=== PATIENT | female | born 1990 | race Caucasian/White ===

== ENCOUNTER 2018-10-05 13:22 | Emergency (ER) | payer OTHER, MEDICAID, SELFPAY ==
[2018-10-05 13:28] VITALS: BP 160/116; PULSE 82; RESP 18; TEMP 36.9; O2SAT 94; BMI 41.5
--- NOTE | 2018-10-05 13:52 | DI.RAD.S_ITS ---
PROCEDURE: XR CHEST 2V INDICATIONS: cough x 3 weeks TECHNIQUE: 2 views of the chest were acquired. COMPARISON: None. FINDINGS: Surgical changes and devices: None. Lungs and pleura: No pleural effusions or pneumothorax. Lungs are clear. Mediastinum: Mediastinal contours are normal. Heart size is normal. Bones and chest wall: No suspicious bony abnormalities. Soft tissues appear unremarkable. IMPRESSION: 1. No acute cardiopulmonary disease. Dictated by: Jean Khoury M.D. on 10/05/2018 at 14:51 Approved by: Jean Khoury M.D. on 10/05/2018 at 14:51
--- NOTE | 2018-10-05 13:57 | ED_ITS ---
HPI - URI/Sore Throat <ROSS Coon - Last Filed: 10/05/18 16:08> General Chief Complaint: Upper Respiratory Symptoms Stated Complaint: cough and wheezing Time Seen by Provider: 10/05/18 13:46 Source: patient Mode of arrival: ambulatory Limitations: no limitations History of Present Illness HPI Narrative: Patient is a 28-year-old female smoker who presents with a chief complaint of a productive cough ongoing for 3-4 weeks. She states she is having wheezing and shortness of breath with activity. She denies any sore throat, ear pain, fever, nausea vomiting diarrhea. She states she has not vomited on the she was intoxicated since this began. She has not taken anything at home to feel better other than her friends Ned Lara, which she states helped her cough. Related Data Previous Rx's Medication Instructions Recorded amoxicillin 500 mg PO Q8H #26 cap 10/17/17 azithromycin See Label Instructions .ROUTE 10/05/18 .COMPLEX #6 tab benzonatate 100 mg PO QID PRN #20 cap 10/05/18 Allergies Allergy/AdvReac Type Severity Reaction Status Date / Time No Known Allergies Allergy Unknown Unverified 02/05/18 12:32 Review of Systems <ROSS Coon - Last Filed: 10/05/18 16:08> Review of Systems GENERAL: Denies chills, fatigue, malaise, fever, sweats. HEENT: Denies sinus pain, ear pain, sore throat, difficulty swallowing, dizziness. RESPIRATORY: See HPI CARDIOVASCULAR: Denies chest pain, palpitations, orthopnea, edema, GASTROINTESTINAL: Denies nausea, vomiting, abdominal pain, diarrhea, constipation, melena. : Denies dysuria, frequency, incontinence, hematuria, urinary retention. MUSCULOSKELETAL: denies weakness, joint pain, or bony pain SKIN: Denies rash, skin lesions, or other NEUROLOGIC: Denies weakness, headache, numbness, change in speech, confusion, seizures, incoordination. PSYCHIATRIC: No concerning psychosocial issues. 12 point review of systems is negative except for those stated above Exam <ROSS Coon - Last Filed: 10/05/18 16:08> Narrative Exam Narrative: GENERAL: This is a well-nourished, well-developed patient, sitting in no acute distress HEAD: Atraumatic. Normocephalic. No temporal or scalp tenderness. EYES: Pupils equal round and reactive. Extraocular motions intact. No scleral icterus. No injection or drainage. ENT: Nose without bleeding, purulent drainage or septal hematoma. Throat without erythema, tonsillar hypertrophy or exudate. Uvula midline. Airway patent. NECK: Trachea midline. No JVD or lymphadenopathy. Supple, nontender, no meningeal signs. CARDIOVASCULAR: Regular rate and rhythm without murmurs, gallops, or rubs. RESPIRATORY: diffuse expiratory wheezes at bases bilaterally. cough in the emergency department profuse. No accessory muscle use. No nasal flaring or tripodding GASTROINTESTINAL: Abdomen soft, non-tender, nondistended. No hepato-splenomegaly , or palpable masses. No guarding. EXTREMITIES: No clubbing, cyanosis, or edema. No joint tenderness, effusion, or edema noted. BACK: Nontender without deformity or crepitance. No flank tenderness. NEURO: AOx3. SKIN: No rash or erythema. Initial Vital Signs Initial Vital Signs: Vital Signs Temperature 98.4 F 10/05/18 13:28 Pulse Rate 82 10/05/18 13:28 Respiratory Rate 18 10/05/18 13:28 Blood Pressure 160/116 H 10/05/18 13:28 Pulse Oximetry 94 10/05/18 13:28 <Bianka Owusu DO - Last Filed: 10/07/18 07:55> Initial Vital Signs Initial Vital Signs: Vital Signs Temperature 98.4 F 10/05/18 13:28 Pulse Rate 82 10/05/18 13:28 Respiratory Rate 18 10/05/18 13:28 Blood Pressure 160/116 H 10/05/18 13:28 Pulse Oximetry 94 10/05/18 13:28 Course <CELSO Coon-BC - Last Filed: 10/05/18 16:08> Orders Ordered: Discontinued Medications Albuterol (Ventolin) 2.5 mg INH NOW ONE Stop: 10/05/18 13:53 Last Admin: 10/05/18 14:04 Dose: 2.5 mg Vital Signs - 8 hr 10/05/18 13:28 10/05/18 14:05 10/05/18 14:08 Temperature 98.4 F Pulse Rate 82 85 100 H Respiratory Rate 18 20 18 Blood Pressure 160/116 H Blood Pressure [Right Arm] 164/112 H Pulse Oximetry 94 94 98 10/05/18 15:00 Temperature Pulse Rate 79 Respiratory Rate 18 Blood Pressure 156/94 H Blood Pressure [Right Arm] Pulse Oximetry 98 <Bianka Owusu DO - Last Filed: 10/07/18 07:55> Orders Ordered: Discontinued Medications Albuterol (Ventolin) 2.5 mg INH NOW ONE Stop: 10/05/18 13:53 Last Admin: 10/05/18 14:04 Dose: 2.5 mg Vital Signs - 8 hr 10/05/18 13:28 10/05/18 14:05 10/05/18 14:08 Temperature 98.4 F Pulse Rate 82 85 100 H Respiratory Rate 18 20 18 Blood Pressure 160/116 H Blood Pressure [Right Arm] 164/112 H Pulse Oximetry 94 94 98 10/05/18 15:00 Temperature Pulse Rate 79 Respiratory Rate 18 Blood Pressure 156/94 H Blood Pressure [Right Arm] Pulse Oximetry 98 MDM - URI/Sore Throat <ROSS Coon - Last Filed: 10/05/18 16:08> Imaging Data Chest x-ray: Radiologist's impression: [place] [address] XRay Report Signed Patient: Nakita Espinoza RMR#: [id number] : 1990Acct:[id number] Age/Sex: 28 / FDate of Service: 10/05/18 Loc: ED Accession Number: [id number] Procedure: XR chest 2V Ordering Provider: Deborah Samson PROCEDURE: XR CHEST 2V INDICATIONS: cough x 3 weeks TECHNIQUE: 2 views of the chest were acquired. COMPARISON: None. FINDINGS: Surgical changes and devices: None. Lungs and pleura: No pleural effusions or pneumothorax. Lungs are clear. Mediastinum: Mediastinal contours are normal. Heart size is normal. Bones and chest wall: No suspicious bony abnormalities. Soft tissues appear unremarkable. IMPRESSION: 1. No acute cardiopulmonary disease. Dictated by: Jean Khoury M.D. on 10/05/2018 at 14:51 Approved by: Jean Khoury M.D. on 10/05/2018 at 14:51 [facility] Narrative Medical decision making narrative: Patient is a 28-year-old female who presents with a chief complaint of cough for the past 3-4 weeks. Her x-ray showed no pneumonia but given her duration of her symptoms, I am electing to treat her for lower lung infection. She does not have any allergies saw uses her mycin. We did try a an albuterol treatment emergency department to see if that would help her and she received no relief from it. I will give her prescription of Tessalon Perles as she states that helps her cough at night. Discussed at length return precautions of shortness of breath or worsening. Discussed follow-up with primary care provider if needed. Discharge Plan Departure Patient Disposition: Home Clinical Impression: Lung infection Discharge Date/Time: 10/05/18 15:15 Interventions: ED Discharge Assessment Last Done: 10/05/18 15:00 Instructions: DI for Cough -- Adult, DI for Acute Bronchitis Activity Restrictions/Additional Instructions: Given the duration of her cough, I am starting on azithromycin. I am also giving her prescription for Tessalon Perles which is an anti tests of medication. Please continue supportive [id number] measures. Please follow-up with primary care provider if needed. Please come back to emergency department for any shortness of breath or acute concerns. Given your high blood pressure in the emergency department, I suggest you follow-up with your primary care provider for a recheck and possible care Prescriptions: New azithromycin 250 mg tablet See Label Instructions .ROUTE .COMPLEX Qty: 6 RF: 0 benzonatate 100 mg capsule 100 mg PO QID PRN (Reason: cough) Qty: 20 RF: 0 No Action amoxicillin 500 MG capsule 500 mg PO Q8H Qty: 26 RF: 0 Referrals: Malik Drew MD [Primary Care Provider] - <Bianka Owusu DO - Last Filed: 10/07/18 07:55> [facility] ED Attending Lucianature Attestation: I was immediately available in the department for consultation. Documentation has been reviewed. I agree with assessment and plan.
[2018-10-05] MEDS: ALBUTEROL 2.5 MG/3 ML NEB (ADULT) INH (14:04)
[2018-10-05 14:05] VITALS: PULSE 85; RESP 20; O2SAT 94
[2018-10-05 14:08] VITALS: BP 164/112; PULSE 100; RESP 18; O2SAT 98
[2018-10-05 15:00] VITALS: BP 156/94; PULSE 79; RESP 18; O2SAT 98
== END 2018-10-05 15:15 | disposition home or self-care (01) ==
PROVIDERS: Emergency Provider Nurse Practitioner Family; PCP Family Medicine
DX: J18.9 Pneumonia, unspecified organism (principal)
CPT/HCPCS: 71046; 94640; 99282; 99283; J7613

== ENCOUNTER 2022-05-02 22:47 | Emergency (ER) | payer OTHER, MEDICAID, SELFPAY ==
[2022-05-02 22:53] VITALS: BP 159/89; PULSE 70; RESP 18; TEMP 37.1; O2SAT 98
--- NOTE | 2022-05-03 00:59 | ED_ITS ---
HPI - Back Pain/Injury General Chief Complaint: Back Pain/Injury Stated Complaint: back pain s/p fall 2 days ago Time Seen by Provider: 05/03/22 00:59 Source: patient History of Present Illness HPI Narrative: 31-year-old woman with no significant medical problems was walking down 3 wooden steps outside while it was raining slipped and fell landing on her right b uttock. She does not describe hitting her head and was able to get up after the fall. In the ensuing 48 hours she has noticed a large hematoma over her buttock with increasing pain to the point where she is having difficulty sitting or moving, pain radiating from the buttock up toward the lumbar spine with midline tenderness to the lumbar spine in right flank pain. Also notes pain radiating up paraspinous muscles toward her right scapula. She denies dyspnea, orthopnea, tachycardia, palpitations. She has been able to eat and drink without difficulty she can void and stool without difficulty. No nausea or vomiting. No headaches. Pain is getting progressively worse and with movement is approaching 8/10 level. Related Data Previous Rx's Medication Instructions Recorded amoxicillin 500 mg capsule 500 mg PO Q8H #26 caps 10/17/17 azithromycin 250 mg tablet See Rx Instructions PO .COMPLEX #6 10/05/18 tabs benzonatate 100 mg capsule 100 mg PO QID PRN cough #20 caps 10/05/18 oxycodone-acetaminophen 5 mg-325 1 tab PO Q6H PRN pain #20 tabs 05/03/22 mg tablet Allergies Allergy/AdvReac Type Severity Reaction Status Date / Time No Known Allergies Allergy Unknown Unverified 02/05/18 12:32 Review of Systems Review of Systems Narrative: Remainder of complete review of systems is otherwise unremarkable except for that included in the HPI. Patient History Social History Smoking Status: Never smoker Smoking Status: Never smoker alcohol intake frequency: a few times a month Substance Use Type: does not use Exam Initial Vital Signs Initial Vital Signs: Vital Signs Temperature 98.7 F 05/02/22 22:53 Pulse Rate 70 05/02/22 22:53 Respiratory Rate 18 05/02/22 22:53 Blood Pressure 159/89 H 05/02/22 22:53 Pulse Oximetry 98 05/02/22 22:53 Oxygen Delivery Method 05/02/22 22:53 General: Healthy appearing, in mild distress. Able to give a complete and coherent history. Well-nourished well-developed HEENT: Moist mucous membranes, normal sclera with reactive pupils, Neck: supple Respiratory: Lungs are clear to auscultation, no wheezing no rales no rhonchi. Full and symmetrical air movement Cardiac: Regular rate and rhythm no murmurs no bruits Abdomen: Soft, right lower quadrant pain, good bowel tones, no flank pain Lumbar spine and buttocks: Very large hematoma, estimated 20 x 20 cm mid right buttock that feels like it is actually just blood with expanding deep hematoma toward the midline, the labia, down the thigh and toward the right flank. She is tender to touch along the lower thoracic and lumbar spine. She is developing some right lower quadrant abdominal pain without rebound or guarding. Skin: Warm and dry, no rashes beyond the rather dramatic hematoma over the entire right buttock from flank to thigh. Neurologic: Grossly neurologically intact with no obvious asymmetries or abnormalities Extremities: No trauma, well perfused. Neurovascularly intact Psych: Cooperative, appropriate insight and affect Course Orders Ordered: ED Orders 05/03/22 01:11 CT abdomen pelvis w con Stat 05/03/22 01:25 Complete Blood Count AUTO DIFF Stat Comprehensive Metabolic Panel Stat Discontinued Medications Oxycodone/Acetaminophen (Oxycodone/Acetaminophen 5/325 Tablet) 1 tab PO NOW ONE Stop: 05/03/22 01:11 Last Admin: 05/03/22 01:17 Dose: 1 tab Documented By: SHAZIA Vital Signs Vital signs: Vital Signs - 8 hr 05/02/22 22:53 Temperature 98.7 F Pulse Rate 70 Respiratory Rate 18 Blood Pressure 159/89 H Pulse Oximetry 98 Oxygen Delivery Method Room Air MDM - Back Pain/Injury Lab Data Result diagrams: 05/03/22 01:25 05/03/22 01:25 Labs: Lab Results 05/03/22 05/03/22 Range/Units 01:25 01:25 WBC 7.7 (4.5-11.0) X10^3/uL RBC 3.04 L (4.0-5.2) X10^6/uL Hgb 9.6 L (12.0-16.0) g/dL Hct 27.5 L (36-46) % MCV 90.7 (80-100) fL MCH 31.7 (26-34) PG MCHC 35.0 (30-36) % RDW 13.2 (11.6-14.8) % Plt Count 214 (150-400) X10^3/uL Neut % (Auto) 53.1 (50-75) % Lymph % (Auto) 38.7 (25-40) % [place] % (Auto) 6.0 (3-14) % Eos % (Auto) 1.5 L (2-4) % Baso % (Auto) 0.7 (0-2) % Neut # (Auto) 4100 (3396-7442) /uL Lymph # (Auto) 3000 (3072-2640) /uL [place] # (Auto) 500 (0-900) /uL Eos # (Auto) 100 (0-450) /uL Baso # (Auto) 100 (0-100) /uL Sodium 139 (137-145) mmol/L Potassium 3.8 (3.4-5.1) mmol/L Chloride 106 (98-107) mmol/L Carbon Dioxide 29 (22-32) mmol/L BUN 11 (7-17) mg/dL Creatinine 0.81 (0.52-1.04) mg/dL Estimated GFR > 60 (>60) mL/min BUN/Creatinine Ratio 13.6 (6-22) Glucose 105 H (70-100) mg/dL Calcium 8.3 L (8.4-10.2) mg/dL Total Bilirubin 0.4 (0.2-1.3) mg/dL AST 44 H (14-36) IU/L ALT 60 H (<35) IU/L Alkaline Phosphatase 75 (38-126) U/L Total Protein 6.7 (6.3-8.2) g/dL Albumin 3.8 (3.5-5.0) g/dL Globulin 2.9 (1.7-4.1) g/dL Albumin/Globulin Ratio 1.3 (1.0-2.8) Imaging Data CT abdomen pelvis: Radiologist's Impression: Large subcutaneous hematoma overlying the right gluteal musculature measuring at least 12.5 cm x 3.9 cm. Otherwise no acute findings in the abdomen or pelvis. [facility] Narrative Medical decision making narrative: 31-year-old woman with dramatically impressive hematoma to the buttock that is radiating up to the flank and down through the hip. CT scan does not show continued active extravasation, pelvic fractures, compression fractures or any retroperitoneal bleeding. Single Percocet has been very helpful in controlling her pain. H&H is low and she has never been told that she is anemic. Suspect that she has had 4-6 units blood loss into this buttock hematoma. At this time conservative management only with appropriate pain control and stool softeners when she is using narcotics. Will ask that she avoid ibuprofen given the risk for additional bleeding. Discharge Plan Departure Patient Disposition: Home Clinical Impression: Hematoma and contusion, Fall (on) (from) other stairs and steps, initial encoun ter, Acute blood loss anemia Back pain Qualifiers: Back pain location: low back pain Chronicity: acute Back pain laterality: right Sciatica presence: without sciatica Qualified Code(s): M54.50 - Low back pain, unspecified Instructions: DI for Hematoma (Bruise) Activity Restrictions/Additional Instructions: Thank you for coming in today You have a very large ( OK, HUGE) and blood clot in your buttock from your fall down the stairs. The clot is beginning to break up and that is why your having such dramatic bruising up and down your back and anterior thigh. At this time you are anemic from the amount of blood that you lost into that blood clot. Please make sure you are eating plenty of iron rich foods to build your blood count backup Your body will reabsorb all of this blood however is going to take an extended period of time. Often with blood clots that her this large people and up having a fibrous lump in that area after the area has completely healed It is okay to use heat to help with pain in that area. Walking and moving can also be helpful. You can use 2 Tylenol or 1 Tylenol and 1 Percocet for pain control. If you do choose to use Percocet, please note that it is a narcotic it can be addictive and it will make you constipated. I suggest using a cap of MiraLax every day that you use Percocet. If you notice that your developing fevers, the area is warm or red rather than the purple blue over bruise those or signs of infection and you do need to return for further evaluation. Prescriptions: New oxycodone-acetaminophen 5-325 mg tablet 1 tab PO Q6H PRN (Reason: pain) Qty: 20 0RF No Action amoxicillin 500 MG capsule 500 mg PO Q8H Qty: 26 0RF azithromycin 250 mg tablet See Rx Instructions .ROUTE .COMPLEX Qty: 6 0RF Rx Instructions: take 500 mg today (day 1), then 250 mg for 4 days (days 2-5) benzonatate 100 mg capsule 100 mg PO QID PRN (Reason: cough) Qty: 20 0RF Referrals: Malik Drew MD [Primary Care Provider] -
--- NOTE | 2022-05-03 01:11 | DI.CT.S_ITS ---
PROCEDURE: CT ABDOMEN PELVIS W CON INDICATIONS: fall, huge hematoma to right buttock, L spine pain TECHNIQUE: After the administration of intravenous contrast, axial sections acquired from the lung bases to the pubic symphysis. Coronal and sagittal reformats were performed. For radiation dose reduction, the following was used: automated exposure control, adjustment of mA and/or kV according to patient size. COMPARISON: None. FINDINGS: Image quality: Excellent. Lung bases: Unremarkable. Heart: No significant findings. ABDOMEN: Liver: The liver demonstrates hepatic steatosis. No mass or intrahepatic biliary ductal dilatation. The liver appears enlarged. Gallbladder: Unremarkable. Biliary ducts: Unremarkable. Pancreas: Unremarkable. Spleen: Unremarkable. Adrenal Glands: Unremarkable. Kidneys and Ureters: Small cyst of the right kidney, otherwise unremarkable. Stomach and Bowel: Stomach, small bowel loops, and colon are unremarkable. Peritoneum: No abnormal intraperitoneal fluid. No free air. Ventral Wall: No hernias. Abdominal Nodes: No retroperitoneal or mesenteric adenopathy by size criteria. Vessels: Aorta and inferior vena cava are normal in size. PELVIS: Pelvic Organs: Unremarkable. Bladder: Unremarkable. Pelvic Nodes: No enlarged lymph nodes. Miscellaneous: No hernias are seen. Large subcutaneous hematoma overlying the right gluteal musculature measuring at least 12 cm in transverse by 3.9 cm AP. Bones: Unremarkable. IMPRESSION: 1. Large subcutaneous hematoma overlying the right gluteal musculature. 2. No other acute abnormality of the abdomen or pelvis. Comment: Final report is concordant with preliminary interpretation by [facility] Dictated by: Braulio Buckner M.D. on 05/03/2022 at 6:27 Approved by: Braulio Buckner M.D. on 05/03/2022 at 6:28
[2022-05-03] MEDS: OXYCODONE/ACETAMINOPHEN 5/325 TABLET 1 TAB PO (01:17)
--- NOTE | 2022-05-03 01:20 | PC.NURSE ---
pt slipped on 2 steps landing on her rear, bruising noted on the whole right gluteus up into the lower back and down into the upper leg with a hardened knot on the upper gluteus
[2022-05-03 01:41] LABS: Add Manual Diff / Slide Review NO; Basophils Absolute Auto 100 /uL (0-100); Basophils Percent Auto 0.7 % (0-2); Eosinophils Absolute Auto 100 /uL (0-450); Eosinophils Percent Auto 1.5 % (2-4); Hematocrit 27.5 % (36-46); Hemoglobin 9.6 g/dL (12.0-16.0); Lymphocytes Absolute Auto 3000 /uL (1100-4500); Lymphocytes Percent Auto 38.7 % (25-40); Mean Corpuscular Hemoglobin 31.7 PG (26-34); Mean Corpuscular Volume 90.7 fL (80-100); Monocytes Absolute Auto 500 /uL (0-900); Neutrophils Absolute Auto 4100 /uL (1500-7000); Neutrophils Percent Auto 53.1 % (50-75); Platelet Count 214 X10^3/uL (150-400); Red Blood Cell Count 3.04 X10^6/uL (4.0-5.2); Red Cell Distribution Width 13.2 % (11.6-14.8); White Blood Cell Count 7.7 X10^3/uL (4.5-11.0)
[2022-05-03 01:43] LABS: Alanine Aminotransferase 60 IU/L (<35); Albumin 3.8 g/dL (3.5-5.0); Albumin Globulin Ratio 1.3 (1.0-2.8); Alkaline Phosphatase 75 U/L (38-126); Aspartate Aminotransferase 44 IU/L (14-36); BUN Creatinine Ratio 13.6 (6-22); Bilirubin Total 0.4 mg/dL (0.2-1.3); Blood Urea Nitrogen 11 mg/dL (7-17); Calcium 8.3 mg/dL (8.4-10.2); Carbon Dioxide 29 mmol/L (22-32); Chloride 106 mmol/L (98-107); Estimated Glomerular Filt Rate > 60 mL/min (>60); Globulin 2.9 g/dL (1.7-4.1); Glucose 105 mg/dL (70-100); HEMOLYSIS < 15 (0-50); Potassium 3.8 mmol/L (3.4-5.1); Sodium 139 mmol/L (137-145); Total Protein 6.7 g/dL (6.3-8.2)
[2022-05-03] MEDS: OXYCODONE/APAP 5/325 PREPACK 1 BOTTLE MISC (03:18)
[2022-05-03 03:20] VITALS: BP 146/84; PULSE 76; RESP 16; O2SAT 100
== END 2022-05-03 03:31 | disposition home or self-care (01) ==
PROVIDERS: Emergency Provider Emergency Medicine; PCP Family Medicine
DX: M54.50 Low back pain, unspecified (principal); S30.0XXA Contusion of lower back and pelvis, initial encounter; D62 Acute posthemorrhagic anemia; W10.9XXA Fall (on) (from) unspecified stairs and steps, initial encounter
CPT/HCPCS: 36415; 74177; 80053; 85025; 99284; Q9967